=== PATIENT | female | born 1990 | race African-American/Black ===

== ENCOUNTER 2020-01-10 13:03 | Emergency (ER) | payer SELFPAY ==
[2020-01-10] MEDS ORDERED: ACETAMINOPHEN 325 MG TABLET PO ONE (13:23)
[2020-01-10 13:25] VITALS: BP 146/88
--- NOTE | 2020-01-10 13:26 | ER Document Report ---
ED Hand/Wrist Injury - General Chief Complaint: Hand Pain Stated Complaint: HAND SWELLING Time Seen by Provider: 01/10/20 13:18 Primary Care Provider: SUJEY WOODS DO [ACTIVE STAFF] - Follow up in 3-5 days Mode of Arrival: Ambulatory Information source: Patient Notes: 29-year-old female presented ED for complaint of pain and swelling to her left hand . She states she started working at the [employer] a couple weeks ago. She states the first couple days her hands were swollen and painful. She states they did give her the Toradol and soaking her hands to help with the swelling due to different activity. She states is been 2 weeks and the hands are still swollen and painful. She states she took ibuprofen and Tylenol on a regular basis and they are not getting any better she just wants to make sure there is nothing else going on with her hands. Constitutional: Negative for fever. HENT: Negative for sore throat. Eyes: Negative for visual changes. Cardiovascular: Negative for chest pain. Respiratory: Negative for shortness of breath. Gastrointestinal: Negative for abdominal pain, vomiting or diarrhea. Genitourinary: Negative for dysuria. Musculoskeletal: Pain and swelling to left hand and fingers. Skin: Negative for rash. Neurological: Negative for headaches, weakness or numbness. 10 point ROS negative except as marked above and in HPI. PHYSICAL EXAMINATION: GENERAL: Well-appearing, well-nourished and in no acute distress. HEAD: Atraumatic, normocephalic. EYES: Pupils equal round extraocular movements intact, conjunctiva are normal. ENT: Nares patent NECK: Normal range of motion LUNGS: No respiratory distress Musculoskeletal: Swelling to left hand and fingers NEUROLOGICAL: Normal speech, normal gait. PSYCH: Normal mood, normal affect. SKIN: Warm, Dry, normal turgor, no rashes or lesions noted. - HPI Injury to: Hand, Wrist, Thumb, Index finger, Middle finger, Ring finger, Small finger Onset: Other - 2 weeks Where: Work Timing: Still present Quality of pain: Sharp, Throbbing Severity: Moderate Pain Level: 4 Context: Swelling - Related Data Allergies/Adverse Reactions: No Known Allergies Allergy (Verified 01/10/20 13:18) Past Medical History - General Information source: Patient - Social History Smoking Status: Current Every Day Smoker Cigarette use (# per day): Yes - 5 to 10 cigarettes a day Chew tobacco use (# tins/day): No Smoking Education Provided: Yes - 2 min Frequency of alcohol use: Social Drug Abuse: None Occupation: [employer] Family History: Reviewed & Not Pertinent Patient has homicidal ideation: No - Past Medical History Cardiac Medical History: Reports: None Pulmonary Medical History: Reports: None EENT Medical History: Reports: None Neurological Medical History: Reports: None Endocrine Medical History: Reports: None Renal/ Medical History: Reports: None Malignancy Medical History: Reports: None GI Medical History: Reports: None Musculoskeletal Medical History: Reports None Skin Medical History: Reports None Psychiatric Medical History: Reports: None Traumatic Medical History: Reports: None Infectious Medical History: Reports: None Past Surgical History: Reports: Hx Adenoidectomy, Hx Tonsillectomy - Immunizations Immunizations up to date: Yes Physical Exam - Vital signs Vitals: Temp 99.7 F 01/10/20 13:19 Course - Re-evaluation Re-evalutation: 01/10/20 22:14 No acute changes noted on x-rays. Written report of x-rays given to patient. Patient was encouraged to continue the treatment that her work suggest doing each night after working at the [employer]. I did give her 2 days off to try to rest the hands before returning to the [employer]. Patient verbalized understanding and agreement with treatment plan. I did instruct patient to follow-up with orthopedics if she continued to have problems with her left hand. - Vital Signs Vital signs: Temp Pulse Resp BP Pulse Ox 99.7 F 85 16 146/88 H 99 01/10/20 13:24 01/10/20 13:24 01/10/20 13:24 01/10/20 13:24 01/10/20 13:24 - Diagnostic Test Radiology reviewed: Image reviewed, Reports reviewed Discharge - Discharge Clinical Impression: Left hand pain and swelling Condition: Stable Disposition: HOME, SELF-CARE Additional Instructions: You were seen today for swelling and pain to your left hand after starting your new job. X-ray does not show any new injuries. Continue using your ibuprofen and Tylenol and I will give you the name and number of an orthopedic tech for you to follow-up with. Continue the protocol that showed job gave you for trying to help with your pain and swelling to your hands. Epsom Salt Soaks Soak the wound area in a container of warm epsom salt water. If you can't get the wound area into a bucket or franklin, use a folded towel soaked in the epsom salt solution and apply to the area. Use clean hot tap water (about the temperature of a very warm bath), mixing in about one (1) teaspoon for every pint of water. Two gallon --> 16 teaspoons Epsom Salts One gallon --> 8 teaspoons Epsom Salts Two quarts --> 4 teaspoons Epsom Salts One quart --> 2 teaspoons Epsom Salts Soak the wound for about 20 minutes while gently moving it around in the water. Repeat this four (4) times a day. FOLLOW-UP CARE: If you have been referred to a physician for follow-up care, call the physicians office for an appointment as you were instructed or within the next two days. If you experience worsening or a significant change in your symptoms, notify the physician immediately or return to the Emergency Department at any time for re-evaluation. Forms: Elevated Blood Pressure, Smoking Cessation Education, Return to Work Referrals: SUJEY WOODS DO [ACTIVE STAFF] - Follow up in 3-5 days
--- NOTE | 2020-01-10 14:15 | RADIOLOGY REPORT (SQ) ---
EXAM DESCRIPTION: HAND LEFT 3 VIEWS IMAGES COMPLETED DATE/TIME: 01/10/2020 2:02 pm REASON FOR STUDY: Pain and swelling COMPARISON: None. EXAM PARAMETERS: NUMBER OF VIEWS: Three views. TECHNIQUE: AP, lateral and oblique radiographic images acquired of the left hand. LIMITATIONS: None. FINDINGS: MINERALIZATION: Normal. BONES: No acute fracture or dislocation. No worrisome bone lesions. JOINTS: No effusions. SOFT TISSUES: No soft tissue swelling. No foreign body. OTHER: No other significant finding. IMPRESSION: NEGATIVE STUDY OF THE LEFT HAND. NO RADIOGRAPHIC EVIDENCE OF ACUTE INJURY. TECHNICAL DOCUMENTATION: JOB ID: [id number] [employer]- All Rights Reserved Reading location - IP/workstation name: [email or web address]
== END 2020-01-10 14:54 | disposition home or self-care (01) ==
LOC: ER 13:03
DX: M79.642 Pain in left hand (principal); M79.645 Pain in left finger(s); M79.89 Other specified soft tissue disorders; S69.90XA Unspecified injury of unspecified wrist, hand and finger(s), initial encounter; X58.XXXA Exposure to other specified factors, initial encounter; F17.210 Nicotine dependence, cigarettes, uncomplicated
CPT/HCPCS: 99283